=== PATIENT | female | born 1990 | race Caucasian/White ===

== ENCOUNTER 2017-02-25 14:09 | Emergency (ER) | payer SELFPAY ==
[2017-02-25 14:19] VITALS: RESP 16; TEMP 97.8
--- NOTE | 2017-02-25 14:39 | PDOC ---
Skin Rash/Insect/Abscess HPI - General Chief Complaint: Integumentary Stated Complaint: BUG BITE Date Seen by Provider: 02/25/17 Time Seen by Provider: 14:34 Source: POSITIVE: Patient Exam Limitations: POSITIVE: No limitations Nurse's Notes Reviewed & Considered: Yes - History of Present Illness Initial Comments: This is a 26 she'll female who presents to the emergency department with a history of a bug bite which she noticed yesterday on the inside of her right bicep. She states that today is become increasingly red and painful, so she thought it might be infected, and came in for evaluation. She has not had any fevers, she has had some chills, no body aches. She has no other complaints. Have you received a tetanus shot in the past 10 years?: Yes - Patient Home Medications Home Medications: Home Medications NK [No Home Medications Reported] 01/27/16 - Patient Allergies Allergies/Adverse Reactions: Allergies Allergy/AdvReac Type Severity Reaction Status Date / Time Sulfa (Sulfonamide Allergy Intermediate hives Unverified 04/12/16 13:15 Antibiotics) Past Medical History - heen HEENT History: Denies History Cardiovascular History: Denies History, DVTs Respiratory History: Asthma Additional Respiratory History: PE DX ON 01/29/15 Gastrointestinal History: Gallbladder Disease, Other (please comment) Additional Gastrointestinal History: ENLARGED LIVER Genitourinary History: Kidney Stones Endocrine History: Type 2 Diabetes (oral) Additional Endocrine History: INSULIN RESISTANCE, PT STATES IS "BORDERLINE" DIABETIC Musculoskeletal History: Denies History Prosthesis or Implant: No Neurological History: Denies History Blood Disorders: Denies History Psychiatric History: Denies History History of Sexually Transmitted Diseases: No Female Reproductive History: Denies History LMP: 7 DAYS AGO Obstetrical History: Denies History Cancer History: Denies History In Past Year Been Physically Harmed or Verbally Threatened: No History of MDRO: No History of Other Communicable Diseases: No Tobacco Use: Never Smoker Alcohol Use: None Substance Use Type: None Previous Surgical History: Yes Type / Date of Surgery: TRACEE Anesthesia Reactions: No Malignant Hyperthermia: No Family History of Malignant Hyperthermia: No Significant Family History: No pertinent family hx Past Medical History Reviewed: Reviewed - No Changes ROS - Limitations ROS Limitations: No Limitations Constitution: REPORTS: Chills. DENIES: Fever Neurological: DENIES: Dizziness Skin: REPORTS: Skin Lesions Skin Rash/Insect/Abscess Exam - General Appearance General Appearance: REPORTS: Alert, Cooperative, No Acute Distress - Skin Skin: REPORTS: Warm, Dry, Tender Indurated Area, Wtih Erythema, Erythema. DENIES: Fluctuant, With Lymphangitis Skin Location: REPORTS: Extremities (Right medial bicep) Skin Character: REPORTS: Macular Skin Symptoms: REPORTS: Warmth, Tenderness, Swelling, Induration, Well Defined Border. DENIES: Lymphangitis, Crusting - HEENT HEENT: NEGATIVE: Scleral Icterus - Respiratory Respiratory: REPORTS: No Respiratory Distress, Breath Sounds Normal - Cardiovascular Cardiovascular: REPORTS: Regular Rate and Rhythm, Heart Sounds Normal - Neurological / Psychological Neurological: REPORTS: Affect Apporpriate, Oriented X3 Skin Rash/Abscess Progress - Patient's Progress MDM / ED Course: Emergency room course: After initial evaluation, I do believe she has an infected insect bite. Since her vital signs are stable, and she is not febrile , we'll give her a prescription for Keflex and discharge her. Return to the emergency department if redness continues to get worse or if fever develops - Consult Counseled: POSITIVE: Patient, RE: DX, RE: Need for F/U Patient Care Time - Estimated PCT Patient Care Time (In Minutes): 10 Vital Signs - Recent Vital Signs Vital Signs: Vital Signs (Last 8 hours) Temp Pulse Resp BP Pulse Ox 02/25/17 14:12 97.8 F 94 16 140/89 98 Discharge Clinical Impression: Cellulitis Discharge Disposition: Discharged to Home Condition: Good Patient Instructions Given at Discharge: Cellulitis (ED), Insect Bite or Sting (ED)
== END 2017-02-25 15:00 | disposition home or self-care (01) ==
LOC: ER 14:09
DX: L03.113 Cellulitis of right upper limb (principal); M79.621 Pain in right upper arm
CPT/HCPCS: 99282